=== PATIENT | male | born 1955 | race Caucasian/White ===

== ENCOUNTER 2017-01-06 09:58 | Inpatient (IN) | payer OTHER ==
[2016-12-24 13:59] VITALS: BMI 25.5
[2017-01-06] MEDS ORDERED: GABAPENTIN 300 MG CAPSULE (FP) PO ONE (10:19)
[2017-01-06] MEDS ORDERED: oxyCODONE HCL 10 MG SUSTAINED ACTING TABLET PO ONE (10:19)
[2017-01-06] MEDS ORDERED: TRANEXAMIC ACID 1000 MG/10 ML VIAL IVPUSH ONE (10:19)
[2017-01-06] MEDS ORDERED: ROPIVICAINE 0.2%/MORPH PF/KETOROLAC - 51ML DISP.SYRINGE IA ONE ×2 (10:19→11:55)
[2017-01-06] MEDS ORDERED: CEFAZOLIN 2 GM in DEXTROSE 5%-WATER - 50 ML IVPB ONE (10:19)
[2017-01-06] MEDS ORDERED: CELECOXIB 200 MG CAPSULE PO ONE (10:19)
[2017-01-06] MEDS ORDERED: DEXAMETHASONE SOD PHOSPHATE/PF 10 MG/ML SDV ONE (11:24)
[2017-01-06] MEDS ORDERED: BUPIVACAINE HCL/PF 2.5 MG/ML - 30 ML VIAL IJ ONE (11:25)
[2017-01-06] MEDS ORDERED: MIDAZOLAM HCL 2 MG/2 ML SINGLE DOSE VIAL ONE (11:25)
[2017-01-06] MEDS ORDERED: ceFAZolin SODIUM 1 GM VIAL ONE ×2 (11:55→12:21)
[2017-01-06] MEDS ORDERED: VANCOMYCIN 1,000 MG VIAL (RESTRICTED TO ID ONLY) ONE (11:55)
[2017-01-06] MEDS ORDERED: TRANEXAMIC ACID 1000 MG/10 ML VIAL ONE ×3 (11:55→12:21)
--- NOTE | 2017-01-06 11:56 | HP ---
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 Failed conservative management so is now indicated for TKA. History Source: Patient, Medical Record Limitations to Obtaining History: No Limitations - Past Medical History Cardiovascular: Yes: Hyperlipdemia Gastrointestinal: Yes: GERD Psych: Yes: Addictions (alcoholism, was on antabuse) Musculoskeletal: Yes: Osteoarthritis - Advance Directives Advance Directives: Yes: Health Care Proxy - Smoking History Smoking history: Former smoker Have you smoked in the past 12 months: Yes If you are a former smoker, when did you quit?: 07/2016 - Alcohol/Substance Use Hx Alcohol Use: Yes (last drink 08/2016) - Social History Usual Living Arrangement: Yes: With Spouse Home Medications - Allergies Allergies/Adverse Reactions: Allergies Allergy/AdvReac Type Severity Reaction Status Date / Time No Known Allergies Allergy Verified 12/24/16 13:43 - Home Medications Home Medications: Ambulatory Orders Calcium Carbonate [Calcium] 500 mg PO DAILY 12/24/16 Cholecalciferol (Vitamin D3) [Vitamin D3 -] 1,000 unit PO DAILY 12/24/16 Diclofenac Sodium [Voltaren-Xr] 100 mg PO DAILY 12/24/16 Diltiazem HCl [Cardizem LA] 360 mg PO DAILY 12/24/16 Esomeprazole Magnesium [Nexium 24Hr] 40 mg PO DAILY 12/24/16 Folic Acid 1 mg PO DAILY 12/24/16 Ibuprofen 600 mg PO TID 12/24/16 Multivitamins [Tab-A-Vit -] 1 tab PO DAILY 12/24/16 Pregabalin [Lyrica -] 150 mg PO BID 12/24/16 Thiamine Mononitrate [Vitamin B-1] 100 mg PO DAILY 12/24/16 Atorvastatin Calcium 1 tab PO DAILY 01/03/17 Famotidine 20 mg PO DAILY 01/03/17 Lisinopril/Hydrochlorothiazide [Lisinopril-Hctz 20-25 mg Tab] 1 tab PO DAILY Paroxetine HCl 20 mg PO DAILY 01/03/17 Tizanidine HCl 2 mg PO TID 01/03/17 Physical Examination Vital Signs: Vital Signs Temperature 98.5 F 01/06/17 10:46 Pulse Rate 94 H 01/06/17 10:46 Respiratory Rate 20 01/06/17 10:46 Blood Pressure 123/76 01/06/17 10:46 O2 Sat by Pulse Oximetry (%) Constitutional: Yes: Well Nourished, No Distress Eyes: Yes: WNL, Conjunctiva Clear HENT: Yes: WNL, Atraumatic, Normocephalic Neck: Yes: WNL, Supple Cardiovascular: Yes: WNL, Regular Rate and Rhythm Respiratory: Yes: WNL, Regular Gastrointestinal: Yes: WNL, Soft ...Rectal Exam: Yes: Deferred Musculoskeletal: Yes: Joint Stiffness, Joint Swelling Peripheral Pulses WNL: Yes Integumentary: Yes: WNL Neurological: Yes: WNL, Alert, Oriented ...Motor Strength: WNL Psychiatric: Yes: WNL, Alert, Oriented Labs: reviewed in chart Imaging - Results X-ray: Image Reviewed Problem List - Problems (1) Osteoarthritis of left knee Code(s): M17.12 - UNILATERAL PRIMARY OSTEOARTHRITIS, LEFT KNEE Qualifiers: Osteoarthritis type: primary Qualified Code(s): M17.12 - Unilateral primary osteoarthritis, left knee Assessment/Plan 61yo male with left knee osteoarthritis for L TKA
[2017-01-06] MEDS ORDERED: DEXAMETHASONE SOD PHOSPHATE 4 MG/1 ML VIAL ONE (12:21)
[2017-01-06] MEDS ORDERED: ONDANSETRON 4 MG/2 ML VIAL ONE (12:21)
[2017-01-06] MEDS ORDERED: BUPIVACAINE HCL/PF 0.5% (5MG/ML) 10 ML VIAL ONE (12:22)
[2017-01-06] MEDS ORDERED: traMADol HCL 50 MG TABLET ONE (15:40)
[2017-01-06] MEDS ORDERED: KETOROLAC TROMETHAMINE 30 MG/1 ML VIAL ONE (15:40)
[2017-01-06] MEDS ORDERED: ACETAMINOPHEN INJECTION 100 ML IVPB ONE (15:40)
--- NOTE | 2017-01-06 15:43 | SURG ---
Surgery Equip Tech Note Equip Tech: Jose Ruiz PA-C Date of Service: 01/06/17 Diagnosis: Left knee osteoarthritis Procedure: Left total knee replacement I was present for the entirety of the operative procedure. For further detail, please refer to operative report. Visit type - Case Type Case Type: Scheduled Admission - New patient This patient is new to me today: Yes Date on this admission: 01/06/17
[2017-01-06] MEDS: traMADol HCL 50 MG TABLET PO SCH ×3 (16:00→22:03)
[2017-01-06] MEDS: KETOROLAC TROMETHAMINE 30 MG/1 ML VIAL IVPUSH SCH ×3 (16:00→22:04)
[2017-01-06] MEDS: ACETAMINOPHEN 1000 MG/100 ML VIAL (NON FORMULARY) IVPB ONE ×2 (16:00→17:58)
--- NOTE | 2017-01-06 16:05 | OP ---
Operative Note - Note: Operative Date: 01/06/17 Pre-Operative Diagnosis: left knee OA Operation: left TKA Post-Operative Diagnosis: Same as Pre-op Surgeon: Jose Carlos Robertson Hide Trimmer: Jose Ruiz Anesthesia: Spinal Estimated Blood Loss (mls): 100
[2017-01-06] MEDS ORDERED: ONDANSETRON 4 MG/2 ML VIAL IVPB PRN (16:07)
[2017-01-06] MEDS ORDERED: MAGNESIUM HYDROX 2400MG/30ML ORAL SUSPENSION 30 ML CUP PO PRN (16:07)
[2017-01-06] MEDS ORDERED: MAG HYDROX/AL HYDROX/SIMETH 30 ML UNIT-DOSE CUP PO PRN (16:07)
[2017-01-06] MEDS ORDERED: oxyCODONE HCL 5 MG TABLET PO PRN (16:11)
[2017-01-06] MEDS ORDERED: LACTATED RINGERS SOLUTION 1,000 ML IV SCH (16:15)
[2017-01-06] MEDS: ACETAMINOPHEN 325 MG TABLET (FP) PO SCH ×2 (17:59→22:03)
[2017-01-06] MEDS: CEFAZOLIN 2 GM/D5W 50 ML IVPB SCH (18:19)
[2017-01-06] MEDS: oxyCODONE HCL 5 MG TABLET PO PRN (20:13)
[2017-01-06] MEDS ORDERED: PATIENT'S OWN MEDICATION (NON-FORMULARY) (Tizanidine Hcl [Tizanidine Hcl] 2 MG) PO SCH (22:00)
[2017-01-06] MEDS: SENNOSIDES/DOCUSATE COMBO (SENNA PLUS) TABLET (UD) PO SCH (22:02)
[2017-01-06] MEDS: GABAPENTIN 300 MG CAPSULE (FP) PO SCH (22:02)
[2017-01-06] MEDS: ATORVASTATIN CA 10 MG TABLET (FP) PO SCH (22:02)
[2017-01-06] MEDS: CELECOXIB 200 MG CAPSULE PO SCH (22:02)
[2017-01-06] MEDS: ASCORBIC ACID 500 MG TABLET (FP) PO SCH (22:03)
[2017-01-06] MEDS: oxyCODONE HCL 10 MG SUSTAINED ACTING TABLET PO SCH (22:04)
[2017-01-07] MEDS: oxyCODONE HCL 5 MG TABLET PO PRN ×4 (00:55→22:58)
[2017-01-07] MEDS: CEFAZOLIN 2 GM/D5W 50 ML IVPB SCH (01:03)
[2017-01-07] MEDS: ACETAMINOPHEN 325 MG TABLET (FP) PO SCH ×4 (04:23→21:40)
[2017-01-07] MEDS: traMADol HCL 50 MG TABLET PO SCH ×4 (04:24→21:41)
[2017-01-07] MEDS: KETOROLAC TROMETHAMINE 30 MG/1 ML VIAL IVPUSH SCH ×2 (04:25→10:38)
[2017-01-07] MEDS: ASPIRIN 325 MG TABLET PO SCH (08:04)
[2017-01-07 08:50] LABS: MCH 31.9 pg (25.7-33.7); MCHC 33.9 g/dl (32.0-35.9); MEAN CELL VOLUME 94.1 fl (80-96); MEAN PLT VOLUME 9.4 fl (7.5-11.1); PLATELET COUNT 298 K/MM3 (134-434); RDW 12.7 % (11.9-15.9); WHITE BLOOD COUNT 21.8 K/mm3 (4.0-10.8)
[2017-01-07 08:56] LABS: ANION GAP 8 (8-16); CALCIUM 9.4 mg/dl (8.4-10.2); CO2 26 mmol/L (22-28); CREATININE 1.1 mg/dl (0.6-1.3); GLUCOSE,RANDOM 146 mg/dl (74-106)
--- NOTE | 2017-01-07 09:08 | PN ---
Progress Note (short form) - Note Progress Note: 61M POD1 s/p left TKR under spinal anesthetic with adductor canal and selective tibial blocks for post operative pain. Pt is doing well, states that pain is well controlled, reports no anesthetic complications. Sensory and motor function is intact in both lower extremities.
[2017-01-07] MEDS ORDERED: DILTIAZEM PO SCH (10:00)
[2017-01-07] MEDS ORDERED: PATIENT'S OWN MEDICATION (NON-FORMULARY) (Lisinopril/Hydrochlorothiazide [Lisinopril-Hctz PO SCH (10:00)
[2017-01-07] MEDS: MULTIVITAMINS (DAILY MVI) TABLET (FP) PO SCH (10:37)
[2017-01-07] MEDS: oxyCODONE HCL 10 MG SUSTAINED ACTING TABLET PO SCH ×2 (10:37→21:42)
[2017-01-07] MEDS: FAMOTIDINE 20 MG TABLET PO SCH (10:37)
[2017-01-07] MEDS: HYDROCHLOROTHIAZIDE 25 MG TABLET (FP) PO SCH (10:38)
[2017-01-07] MEDS: PANTOPRAZOLE 40 MG TABLET (FP) PO SCH (10:38)
[2017-01-07] MEDS: CELECOXIB 200 MG CAPSULE PO SCH ×2 (10:39→21:39)
[2017-01-07] MEDS: PARoxetine HCL 20 MG TABLET (FP) PO SCH (10:40)
[2017-01-07] MEDS: ASCORBIC ACID 500 MG TABLET (FP) PO SCH ×2 (10:40→21:40)
[2017-01-07] MEDS: SENNOSIDES/DOCUSATE COMBO (SENNA PLUS) TABLET (UD) PO SCH ×2 (10:40→21:40)
[2017-01-07] MEDS: THIAMINE HCL 100 MG TABLET (FP) PO SCH (10:40)
[2017-01-07] MEDS: LISINOPRIL 20 MG TABLET (FP) PO SCH (10:40)
[2017-01-07] MEDS: GABAPENTIN 300 MG CAPSULE (FP) PO SCH ×2 (10:41→21:40)
[2017-01-07] MEDS: FOLIC ACID 1 MG TABLET (FP) PO SCH (10:42)
--- NOTE | 2017-01-07 21:11 | PN ---
Progress Note (short form) - Note Progress Note: Pt seen and examined. Comfortable. No complaints. Walked 1500+ feet today! AVSS Selected Entries 01/07/17 01/07/17 14:11 20:06 Temperature 98.9 F Pulse Rate 97 H Respiratory 18 Rate Blood Pressure 132/79 O2 Sat by Pulse 96 Oximetry (%) Laboratory Tests 01/07/17 01/07/17 07:00 07:00 WBC 21.8 H Hgb 11.3 L Hct 33.3 L Plt Count 298 Sodium 133 L Potassium 4.9 Chloride 99 Carbon Dioxide 26 Anion Gap 8 BUN 20 H Creatinine 1.1 Random Glucose 146 H Calcium 9.4 Gen: NAD, AAO LLE: c/d/i, NVID A/P 61yo male POD#1 s/p L TKA 1. PT/OOB - WBAT LLE 2. D/C tomorrow morning after PT; f/u in office in 10-14 days. Problem List - Problems (1) Osteoarthritis of left knee Code(s): M17.12 - UNILATERAL PRIMARY OSTEOARTHRITIS, LEFT KNEE Qualifiers: Osteoarthritis type: primary Qualified Code(s): M17.12 - Unilateral primary osteoarthritis, left knee
--- NOTE | 2017-01-07 21:29 | DS ---
Physical Examination Vital Signs: Vital Signs Temperature 98.9 F 01/07/17 14:11 Pulse Rate 97 H 01/07/17 14:11 Respiratory Rate 18 01/07/17 20:06 Blood Pressure 132/79 01/07/17 14:11 O2 Sat by Pulse Oximetry (%) 96 01/07/17 20:06 Labs: CBC, BMP 01/07/17 07:00 01/07/17 07:00 Discharge Summary Reason For Visit: LEFT KNEE OSTEOARTHRITIS Current Active Problems Osteoarthritis of left knee (Acute) Procedures: Principal: left TKA Hospital Course: Admitted for elective surgery. Procedure performed without complications. Pt received postoperative antibiotic prophylaxis and DVT ppx. Ambulated with physical therapy. Stable for discharge home with outpatient followup. Condition: Stable - Instructions Diet, Activity, Other Instructions: Dr. Robertson - Knee Replacement Instructions Dear Dion, Keep the Aquacel dressing on until removed by Dr. Robertson in 10-14 days - it is antibacterial and waterproof and you can shower with it on. Call the office for a follow-up appointment with Dr. Robertson in 10-14 days. Take one Aspirin 325mg daily for 6 weeks to prevent blood clots in your legs. Resume taking Pepcid and Nexium daily (for at least 6 weeks) to protect against heartburn and ulcers. Take Celebrex 200mg twice daily for 30 days to reduce swelling and inflammation. Take a multivitamin, additional vitamin C supplement, and stool softener daily. For pain: *Mild pain (1-3/10): Take 1 Tramadol tablet every 4 hours as needed. Moderate pain (4-6/10): Take 1 Tramadol tablet and 1 Percocet tablet every 4 hours as needed. Severe pain (7-10/10): Take 1 Tramadol tablet and 2 Percocet tablets every 4 hours as needed. Activity: You can put as much weight on the operative leg as you want. Right after you get home, there will be a physical therapist coming to your house to help you walk around and bend/straighten your knee. After your follow-up appointment, you will be sent for more intensive outpatient physical therapy which will include machines and equipment that the home therapist cannot bring to your house. Always use a walker or cane for balance and to prevent falls. Disposition: HOME - Home Medications Comprehensive Discharge Medication List: Ambulatory Orders Calcium Carbonate [Calcium] 500 mg PO DAILY 12/24/16 Cholecalciferol (Vitamin D3) [Vitamin D3 -] 1,000 unit PO DAILY 12/24/16 Diltiazem HCl [Cardizem LA] 360 mg PO DAILY 12/24/16 Esomeprazole Magnesium [Nexium 24Hr] 40 mg PO DAILY 12/24/16 Folic Acid 1 mg PO DAILY 12/24/16 Multivitamins [Multivit ([facility] Formulary)] 1 tab PO DAILY 12/24/16 Pregabalin [Lyrica -] 150 mg PO BID 12/24/16 Thiamine Mononitrate [Vitamin B-1] 100 mg PO DAILY 12/24/16 Atorvastatin Calcium 1 tab PO DAILY 01/03/17 Famotidine 20 mg PO DAILY 01/03/17 Lisinopril/Hydrochlorothiazide [Lisinopril-Hctz 20-25 mg Tab] 1 tab PO DAILY Paroxetine HCl 20 mg PO DAILY 01/03/17 Tizanidine HCl 2 mg PO TID 01/03/17 Ascorbic Acid [Vitamin C -] 500 mg PO BID tablet 01/07/17 Aspirin [ASA -] 325 mg PO DAILY@0800 tablet 01/07/17 Celecoxib [CeleBREX -] 200 mg PO BID #60 tab 01/07/17 Multivitamins [Multivit ([facility] Formulary)] 1 tab PO DAILY tab 01/07/17 Oxycodone HCl/Acetaminophen [Percocet 5-325 mg Tablet] 1 - 2 tab PO Q4H PRN #60 tablet MDD 8 01/07/17 Sennosides/Docusate Sodium [Pericolace -] 1 tablet PO BID tablet 01/07/17 Tramadol HCl [Ultram -] 50 mg PO Q4H PRN #90 tablet MDD 6 01/07/17
[2017-01-07] MEDS: ATORVASTATIN CA 10 MG TABLET (FP) PO SCH (21:39)
[2017-01-07 23:18] LABS: PLATELET ESTIMATE ADEQUATE (NORMAL)
[2017-01-08] MEDS: ACETAMINOPHEN 325 MG TABLET (FP) PO SCH ×2 (04:03→09:36)
[2017-01-08] MEDS: traMADol HCL 50 MG TABLET PO SCH ×2 (04:03→09:35)
[2017-01-08] MEDS: oxyCODONE HCL 5 MG TABLET PO PRN (06:21)
[2017-01-08 07:27] VITALS: BP 125/78; PULSE 79; TEMP 97.8
[2017-01-08 07:40] LABS: MCH 31.4 pg (25.7-33.7); MCHC 33.5 g/dl (32.0-35.9); MEAN CELL VOLUME 93.6 fl (80-96); MEAN PLT VOLUME 8.8 fl (7.5-11.1); PLATELET COUNT 277 K/MM3 (134-434); WHITE BLOOD COUNT 12.3 K/mm3 (4.0-10.8)
[2017-01-08 08:03] LABS: ANION GAP 5 (8-16); CALCIUM 8.9 mg/dl (8.4-10.2); CO2 27 mmol/L (22-28); CREATININE 0.9 mg/dl (0.6-1.3); GLUCOSE,RANDOM 103 mg/dl (74-106)
[2017-01-08] MEDS: ASPIRIN 325 MG TABLET PO SCH (08:52)
[2017-01-08] MEDS: FAMOTIDINE 20 MG TABLET PO SCH (09:35)
[2017-01-08] MEDS: ASCORBIC ACID 500 MG TABLET (FP) PO SCH (09:35)
[2017-01-08] MEDS: SENNOSIDES/DOCUSATE COMBO (SENNA PLUS) TABLET (UD) PO SCH (09:35)
[2017-01-08] MEDS: FOLIC ACID 1 MG TABLET (FP) PO SCH (09:35)
[2017-01-08] MEDS: THIAMINE HCL 100 MG TABLET (FP) PO SCH (09:35)
[2017-01-08] MEDS: HYDROCHLOROTHIAZIDE 25 MG TABLET (FP) PO SCH (09:35)
[2017-01-08] MEDS: GABAPENTIN 300 MG CAPSULE (FP) PO SCH (09:36)
[2017-01-08] MEDS: PANTOPRAZOLE 40 MG TABLET (FP) PO SCH (09:36)
[2017-01-08] MEDS: PARoxetine HCL 20 MG TABLET (FP) PO SCH (09:36)
[2017-01-08] MEDS: CELECOXIB 200 MG CAPSULE PO SCH (09:36)
[2017-01-08] MEDS: LISINOPRIL 20 MG TABLET (FP) PO SCH (09:36)
[2017-01-08] MEDS: MULTIVITAMINS (DAILY MVI) TABLET (FP) PO SCH (09:36)
[2017-01-08] MEDS: oxyCODONE HCL 10 MG SUSTAINED ACTING TABLET PO SCH (09:37)
--- NOTE | 2017-01-12 16:08 | PATH ---
Surgical Pathology Report Patient Name: MILDRED IRBY Med. Rec. #: [id number] /Age/Gender: 1955 (Age: 61) / M Account: [id number] Location: [facility] MED-SURG Taken: 01/06/2017 Received: 01/06/2017 Reported: 01/12/2017 Physicians: Jose Carlos Robertson M.D. Specimen(s) Received BONE LEFT KNEE Clinical History Left knee osteoarthritis Final Diagnosis BONE, LEFT KNEE, TOTAL REPLACEMENT: DEGENERATIVE JOINT DISEASE. Electronically Signed Jeane Pagan M.D. Gross Description Received in formalin labeled "bone left knee," is a 14.0 x 11.0 x 2.5 cm aggregate of multiple irregular portions of bone and soft tissue, consistent with knee bones. There is a 3 cm in greatest dimension area of eburnation present on the tibial plateau. The remaining articular surfaces are dempsey-yellow and diffusely granular. The underlying trabecular bone is yellow and hard. [employer] sections are submitted in one cassette, following decalcification. 01/07/2017 [email or web address]/07/2017
== END 2017-01-08 13:39 | disposition home health service (06) | DRG 470 ==
LOC: FM/S 09:58
PROVIDERS: ADMIT Student in an Organized Health Care Education/Training Program; ATTEND Student in an Organized Health Care Education/Training Program
PROC: 0SRD0JA Replacement of Left Knee Joint with Synthetic Substitute, Uncemented, Open Approach (ICD-10-PCS; principal; 2017-01-06 13:10)
DX: M17.12 Unilateral primary osteoarthritis, left knee (principal); I10 Essential (primary) hypertension; K21.9 Gastro-esophageal reflux disease without esophagitis; Z87.891 Personal history of nicotine dependence
CPT/HCPCS: 36415; 73000-TC-LT; 73560-TC-LT; 80048; 85027; 88304-TC; 88311-TC; 94010; 94760; 97010-GP; 97116-GP; 97161-GP